=== PATIENT | male | born 1995 | race Two or more races ===

== ENCOUNTER → 2018-12-20 | Outpatient (CLI) | payer OTHER ==
[~2018-12-20] MED LIST: LIDOCAINE WITH 8.4% SOD BICARB 3 ML DISP.SYRIN. INJ ONE
[2018-12-20 10:55] VITALS: BP 124/68
[2018-12-20 11:40] VITALS: BP 117/70
[2018-12-20 11:57] LABS: CSF PROTEIN 47.2 mg/dL (15.0-45.0)
--- NOTE | 2018-12-20 12:02 | NUR ---
Patient d/c at 1145. RN walked patient to his mother's vehicle who is driving him home. Bandage on lower back is dry, no bleeding. Patient has no pain. LP discharge instructions signed, educated patient.
[2018-12-20 12:16] LABS: CSF CLARITY CLEAR; CSF COLOR COLORLESS; CSF RBC COUNT 5 /cmm (Not Established); CSF WBC COUNT 0 /cmm (Not Established)
--- NOTE | 2018-12-20 15:22 | RAD ---
Examination: LUMBAR PUNCTURE History: Paresthesias Comparison/Correlation: None Findings: Risks and benefits of lumbar puncture were discussed with the patient and informed consent was obtained. Fluoroscopy was utilized for 0.3 minutes. A single image was acquired. Patient was placed in the MAGO position. Betadine swabs were utilized at the L4-5 and L5-S1 levels. Sterile drape was placed. 5 cc 1 percent lidocaine was administered at the L5-S1 level. Interlaminar approach was utilized. A 20-gauge spinal needle was placed into the thecal sac under fluoroscopic guidance. Opening pressure of 10 mmHg noted. A total of 20 cc of CSF were withdrawn. The first 3 cc which were placed in the first vial is slightly blood-tinged. Additional 17 cc was placed in nearly equal amounts in the 3 additional vials and was clear. Closing pressure of 5 mmHg noted. The patient tolerated procedure well without immediate complications. Post procedure protocols were instituted and postprocedure instructions provided. Impression: Successful lumbar puncture. CSF specimens were sent to the lab. Normal opening and closing pressures. Electronically signed by: Fredy Chatterjee MD (12/20/2018 3:19 PM) [facility]
== END | disposition home or self-care (01) ==
LOC: RAD 09:05
PROVIDERS: ATTEND Student in an Organized Health Care Education/Training Program
DX: G64 Other disorders of peripheral nervous system (principal); R20.2 Paresthesia of skin
CPT/HCPCS: 62270; 77003; 82945; 84157; 86592; 86618; 89051